=== PATIENT | male | born 2000 | race Caucasian/White ===

== ENCOUNTER 2021-02-25 12:37 | Inpatient (IN) | payer OTHER ==
[~2021-02-25] VITALS: Ht 185.4 cm; Wt 95.5 kg
[2021-02-25] MEDS ORDERED: VALT500T PO (12:45)
[2021-02-25 17:32] LABS: BASO # 0.1 10^3/uL (0.0-0.2); BASO % 0.3 % (0.0-1.0); EOS % 0.1 % (0.0-3.0); HEMATOCRIT 40.1 % (42.0-52.0); HEMOGLOBIN 13.3 g/dl (13.5-17.5); LYMPH # 0.8 10^3/uL (1.5-5.0); LYMPH % 5.1 % (24.0-44.0); MEAN CORPUSCULAR HEMOGLOBIN 31.6 pg (27.0-33.0); MEAN CORPUSCULAR HGB CONC 33.2 g/dl (32.0-36.5); MEAN CORPUSCULAR VOLUME 95.2 fl (80.0-96.0); MONO # 1.3 10^3/uL (0.0-0.8); NEUTROPHILS # 13.9 10^3/uL (1.5-8.5); NEUTROPHILS % 86.1 % (36.0-66.0); PLATELET COUNT, AUTOMATED 299 10^3/uL (150-450); RED BLOOD COUNT 4.21 10^6/uL (4.30-6.10); WHITE BLOOD COUNT 16.2 10^3/uL (4.0-10.0)
--- NOTE | 2021-02-25 17:45 | REP ---
INDICATION: swelling redness, pain COMPARISON: None TECHNIQUE: Five views FINDINGS: The compartments are symmetric and well maintained. There is no acute fracture, dislocation, or subluxation. There is no destructive osseous lesion. There does appear to be soft tissue swelling at the level of an inferior to the patella. IMPRESSION: Soft tissue swelling. No osseous abnormality. <Electronically signed by Chucho Man > 02/25/21 1204
[2021-02-25 18:09] LABS: ALBUMIN 4.4 GM/DL (3.2-5.2); ALT/SGPT 35 U/L (12-78); BLOOD UREA NITROGEN 19 MG/DL (7-18); CALCIUM LEVEL 9.4 MG/DL (8.5-10.1); CARBON DIOXIDE LEVEL 26 MEQ/L (21-32); CHLORIDE LEVEL 104 MEQ/L (98-107); CREATININE FOR GFR 1.12 MG/DL (0.70-1.30); GLUCOSE, FASTING 94 MG/DL (70-100); POTASSIUM SERUM 3.7 MEQ/L (3.5-5.1); SODIUM LEVEL 136 MEQ/L (136-145); TOTAL PROTEIN 7.8 GM/DL (6.4-8.2)
[2021-02-25 18:12] LABS: ERYTHROCYTE SEDIMENTATION RATE 10 mm/hr (0-15)
[2021-02-25] MEDS ORDERED: LIDOCAINE 1% SDV 30ML VIAL SC ONE (19:55)
[2021-02-25] MEDS ORDERED: LIDOCAINE 1% SDV 30ML VIAL SC SCH (19:55)
[2021-02-25] MEDS ORDERED: LIDOCAINE 1% MDV 20ML VIAL As Ordered ONE (19:57)
--- NOTE | 2021-02-25 20:17 | CR.PDOC ---
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 He states that he was doing movements and ran 5 miles yesterday. Developed progressive onset pain and swelling in the knee difficulty weightbearing. States he had a difficult night sleeping with possible fever and chills. Was sent in to emerge for evaluation. Otherwise healthy male. No trauma to the knee. X-rays otherwise negative.]. ALLERGIES: Please see below. HOME MEDICATIONS: Please see below. 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 GENERAL APPEARANCE: [Resting comfortably on stretcher]. HEENT: [Within normal limits]. RESPIRATORY: [Breathing comfortably on room air]. CARDIOVASCULAR: [No chest pain vital signs as below]. ABDOMEN: [Soft nontender]. EXTREMITIES: [Left knee able to actively range of motion 0 to 90 degrees. Mild tightness with deep flexion Erythema anterior surface of the knee. Bogginess subcutaneous over anterior aspect of the knee. Nontender to palpation]. NEUROLOGICAL: [Sensory intact to light touch. Grade 5 power throughout left lower extremity]. PSYCHIATRIC: [Compliant and agreeable]. Patient consents to aspiration subcutaneous fluid. Skin cleaned with Betadine and then with chlorhexidine wipes Using sterile technique aspiration of 2 to 3 cc serosanguineous fluid from the subcutaneous tissue. This was not a knee aspiration. LABORATORY DATA: Please see below. ASSESSMENT/PLAN: Healthy male most likely cellulitis. Full range of motion of the knee so unlikely septic knee. Plan would be to admit for IV antibiotics. Given the unusual nature and no history of trauma. Would MRI left knee to better evaluate subcutaneous structures. Fluid collection noted on MRI. Plan to monitor response to IV with Blood work and monitor symptoms. Vital Signs/I&O Vital Signs Date Time Temp Pulse Resp B/P (MAP) Pulse Ox O2 Delivery O2 Flow Rate FiO2 02/25/21 18:41 100.8 02/25/21 15:57 02/25/21 12:38 92 16 100 Room Air Laboratory Data Labs 24H Laboratory Tests 2 02/25/21 17:08: Immature Granulocyte % (Auto) 0.4, Neutrophils (%) (Auto) 86.1H, Lymphocytes (%) (Auto) 5.1L, Monocytes (%) (Auto) 8.0, Eosinophils (%) (Auto) 0.1, Basophils (%) (Auto) 0.3, Neutrophils # (Auto) 13.9H, Lymphocytes # (Auto) 0.8L, Monocytes # (Auto) 1.3H, Eosinophils # (Auto) 0.0, Basophils # (Auto) 0.1, Nucleated Red Blood Cells % (auto) 0.0, Erythrocyte Sedimentation Rate 10, Anion Gap 6L, Lactic Acid Level 1.1, Uric Acid 3.0L, Calcium Level 9.4, Total Bilirubin 1.0, Aspartate Amino Transf (AST/SGOT) 28, Alanine Aminotransferase (ALT/SGPT) 35, Alkaline Phosphatase 105, C-Reactive Protein, Quantitative 11.80H, Total Protein 7.8, Albumin 4.4, Albumin/Globulin Ratio 1.3 CBC/BMP Laboratory Tests 02/25/21 17:08 Microbiology Microbiology 02/25/21 Blood Culture, Received Pending 02/25/21 Blood Culture, Received Pending Allergies Coded Allergies: No Known Allergies (Unverified , 02/25/21) Home Medications Scheduled PRN Ibuprofen (Ibuprofen) 200 Mg Tablet, 800 MG PO Q8H PRN for MILD PAIN or TEMP > 100.4, (Reported) Valacyclovir HCl (Valacyclovir) 500 Mg Tablet, 500 MG PO BID PRN for FLARE-UPS, (Reported) EVELYN ANSARI MD Feb 25, 2021 20:17
[2021-02-25 21:10] LABS: SOURCE, BODY FLUID LFT KNEE; SYNOVIAL FLUID COLOR RED (COLORLESS)
[2021-02-25] MEDS ORDERED: PROHANCE 279.3MG/ML 15ML VIAL As Ordered ONE (21:15)
[2021-02-25] MEDS ORDERED: PROHANCE 279.3MG/ML 5ML VIAL As Ordered ONE (21:17)
--- NOTE | 2021-02-25 21:56 | REPVR ---
PROCEDURE INFORMATION: Exam: MR Left Lower Extremity Joint Without and With Contrast, Knee Exam date and time: 02/25/2021 8:58 PM Age: 20 years old Clinical indication: Swelling or effusion of joint; Knee; Additional info: Left knee swelling unusual presentation with subcutaneous FL TECHNIQUE: Imaging protocol: MR of the Left lower extremity joint without and with contrast. Exam focused on the knee. Contrast material: PROHANCE; Contrast volume: 19 ml; Contrast route: INTRAVENOUS (IV); COMPARISON: CR Knee, complete LEFT 02/25/2021 4:48 PM FINDINGS: There is a large amount of loculated, complex, peripherally enhancing deep subcutaneous fluid along the anterior aspect of the knee, measuring up to approximately 5.4 x 1.5 x 11.4 cm laterally and 4.8 x 0.9 x 7.3 cm medially. Pronounced associated soft tissue swelling and subcutaneous edema with associated enhancement and overlying skin thickening. Small popliteal cyst. Mildly prominent retrofemoral lymph nodes, likely reactive. The anterior and posterior cruciate ligaments are intact. The medial collateral ligament and lateral collateral complex are normal in appearance. The medial and lateral menisci are normal in morphology and signal intensity. No meniscal tear is identified. The extensor mechanism is intact. There is no evidence of acute fracture or dislocation. Bone marrow signal is normal. Alignment is anatomic. The articular cartilage is intact. There is no significant suprapatellar effusion. IMPRESSION: 1. Large amount of loculated, complex, peripherally enhancing fluid along the anterior aspect of the knee, concerning for abscess. 2. Additional findings, as above. Electronically signed by: Shay Avila On 02/25/2021 21:56:24 PM
[2021-02-25 22:41] LABS: RSV AMPLIFICATION NEGATIVE (NEGATIVE)
[2021-02-25] MEDS ORDERED: IBUP-1720 PO (22:59)
[2021-02-25] MEDS ORDERED: VALA500T5 PO (22:59)
[2021-02-25] MEDS ORDERED: HOME MED LIST COMPLETE! XX SCH (23:00)
--- NOTE | 2021-02-25 23:10 | HPEPDOC ---
[facility] Medical History & Physical Date of Admission Feb 25, 2021 Date of Service: Feb 25, 2021 History and Physical CHIEF COMPLAINT: Left knee pain HISTORY OF PRESENT ILLNESS: 20-year-old healthy male presents with worsening left knee pain over the past 24 hours. Patient last evening noticed his left knee was becoming more swollen and red and this was after he had returned from running 5 miles. He does do some training where he was loaded on his left knee but otherwise he denies any trauma or penetrating wounds or insect bites to the knee. He denies having any pain or swelling in any other joints. He endorses having fevers & chills but no nausea or vomiting. He did note that he had a rash on his abdomen that lasted for several hours and then went away on its own. In the emergency department orthopedic surgery was consulted who saw the patient at bedside and aspirated fluid from his knee which was sent for culture and recommended admission to medical service for IV antibiotics. 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 REVIEW OF SYSTEMS: 10 point review of systems complete all negative otherwise stated in HPI HOME MEDICATIONS: Please see below. PHYSICAL EXAMINATION: Constitutional: Awake and alert, in no apparent distress ENT: Sclera are clear. Mucosa is moist. Respiratory: Lungs CTA bilaterally. Cardiovascular: RRR S1 and S2 are normal, I cannot appreciate a murmur Gastrointestinal: Abdomen is soft, non distended, non tender, BS present. Musculoskeletal: No lower extremity edema. Left knee is erythematous around the patella with some mild swelling. It's not tender to palpation. He is able to bend it to 90. Feels a little tight beyond that. Neurologic: No focal neurological deficit. Mental Status: A&O x3, normal affect skin: He had reported a rash on his abdomen that lasted for a few hours and went away on its own and currently there is no obvious rashes that I can see LABORATORY DATA: See below. IMAGING: See chart MICROBIOLOGY: Please see below. ASSESSMENT/PLAN # Left knee cellulitis/abscess: IV Abx with Unasyn. Fu BCx. Fu aspiration fluid culture and stain. Orthopedics consulted - no need for I&D right now, continue IV abx and watch for response. MRI suggestive of fluid collection could be abscess. He does have leukocytosis and a fever. Pain control. # DVT prophylaxis: Heparin A Yousef Hospitalist Vital Signs Vital Signs Date Time Temp Pulse Resp B/P (MAP) Pulse Ox O2 Delivery O2 Flow Rate FiO2 02/25/21 18:41 100.8 02/25/21 15:57 02/25/21 12:38 92 16 100 Room Air Laboratory Data Labs 24H Laboratory Tests 2 02/25/21 17:08: Immature Granulocyte % (Auto) 0.4, Neutrophils (%) (Auto) 86.1H, Lymphocytes (%) (Auto) 5.1L, Monocytes (%) (Auto) 8.0, Eosinophils (%) (Auto) 0.1, Basophils (%) (Auto) 0.3, Neutrophils # (Auto) 13.9H, Lymphocytes # (Auto) 0.8L, Monocytes # (Auto) 1.3H, Eosinophils # (Auto) 0.0, Basophils # (Auto) 0.1, Nucleated Red Blood Cells % (auto) 0.0, Erythrocyte Sedimentation Rate 10, Anion Gap 6L, Lactic Acid Level 1.1, Uric Acid 3.0L, Calcium Level 9.4, Total Bilirubin 1.0, Aspartate Amino Transf (AST/SGOT) 28, Alanine Aminotransferase (ALT/SGPT) 35, Alkaline Phosphatase 105, C-Reactive Protein, Quantitative 11.80H, Total Protein 7.8, Albumin 4.4, Albumin/Globulin Ratio 1.3 02/25/21 20:39: Body Fluid WBC (Auto) 01156F, Body Fluid RBC (Auto) 30, Body Fluid Mononuclear Cells % Auto 24.2H, Fluid Polymorphonuclear Cell % Auto 75.8H, Synovial Fluid Source LFT KNEE, Synovial Fluid Color RED, Synovial Fluid Appearance TURBID 02/25/21 21:49: Coronavirus (COVID-19)(PCR) NEGATIVE, Influenza Type A (RT-PCR) NEGATIVE, Influenza Type B (RT-PCR) NEGATIVE, Respiratory Syncytial Virus (PCR) NEGATIVE CBC/BMP Laboratory Tests 02/25/21 17:08 Microbiology Microbiology 02/25/21 Gram Stain, Received Pending 02/25/21 Body Fluid Culture, Received Pending 02/25/21 Blood Culture, Received Pending 02/25/21 Blood Culture, Received Pending Home Medications Scheduled PRN Ibuprofen (Ibuprofen) 200 Mg Tablet, 800 MG PO Q8H PRN for MILD PAIN or TEMP > 100.4 Valacyclovir HCl (Valacyclovir) 500 Mg Tablet, 500 MG PO BID PRN for FLARE-UPS Allergies Coded Allergies: No Known Allergies (Unverified , 02/25/21) SHREYAS EDGE MD Feb 25, 2021 23:10
--- OUTSIDE RECORDS SUMMARY | 2021-02-25 23:20 | CCD ---
Author Author [facility] Organization [facility] Address Unknown Phone Unavailable Support Name Relationship Address Phone ARMY Next Of Kin [address] [place] [address] Unavailable KATIA [place] [address] LINA NIELSON Next Of Kin [address] [place] [address] Re-disclosure Warning The records that you are about to access may contain information from federally-assisted alcohol or drug abuse programs. If such information is present, then the following federally mandated warning applies: This information has been disclosed to you from records protected by federal confidentiality rules (42 CFR part 2). The federal rules prohibit you from making any further disclosure of this information unless further disclosure is expressly permitted by the written consent of the person to whom it pertains or as otherwise permitted by 42 CFR part 2. A general authorization for the release of medical or other information is NOT sufficient for this purpose. The Federal rules restrict any use of the information to criminally investigate or prosecute any alcohol or drug abuse patient.The records that you are about to access may contain highly sensitive health information, the redisclosure of which is protected by Article 27-F of the [facility] Public Health law. If you continue you may have access to information: Regarding HIV / AIDS; Provided by facilities licensed or operated by the [facility] Office of Mental Health; or Provided by the [facility] Office for People With Developmental Disabilities. If such information is present, then the following [facility] mandated warning applies: This information has been disclosed to you from confidential records which are protected by state law. State law prohibits you from making any further disclosure of this information without the specific written consent of the person to whom it pertains, or as otherwise permitted by law. Any unauthorized further disclosure in violation of state law may result in a fine or halfway sentence or both. A general authorization for the release of medical or other information is NOT sufficient authorization for further disc losure. Immunizations Vaccine Date Status Description Data Source(s) COVID-19 VACCINE Moderna 09/16/2020 12:00:00 AM EDT completed [employer] Vaccine Series Complete: YESThis Data wa s Submitted to [facility] Via [employer]. COVID-19 VACCINE Moderna 08/19/2020 12:00:00 AM EDT completed [employer] Vaccine Series Complete: NOThis Data was Submitted to [facility] Via [employer]. Medications No Information Insurance Providers Payer name Policy type / Coverage type Policy ID Covered republican ID Covered republican's relationship to clifford Policy Clifford Plan Information [facility] [employer] [id number] Problems, Conditions, and Diagnoses No Information Surgeries/Procedures No Information Results No Information Social History No Information
[2021-02-25] MEDS: ACETAMINOPHEN TAB 650MG DOSE (2X325MG) PO PRN (23:38)
[2021-02-26] VITALS: BP 137/76
[2021-02-26] MEDS: AMPICILLIN SOD/SULBACTAM SOD 3 GM in D5W MINI-BAG PLUS 100 ML IV SCH ×4 (00:14→17:47)
[2021-02-26 06:00] VITALS: BP 128/74
[2021-02-26] MEDS: ACETAMINOPHEN TAB 650MG DOSE (2X325MG) PO PRN (06:29)
[2021-02-26 06:54] LABS: BASO # 0.1 10^3/uL (0.0-0.2); BASO % 0.3 % (0.0-1.0); EOS # 0.1 10^3/uL (0.0-0.5); HEMATOCRIT 40.6 % (42.0-52.0); HEMOGLOBIN 13.1 g/dl (13.5-17.5); LYMPH # 1.1 10^3/uL (1.5-5.0); LYMPH % 7.5 % (24.0-44.0); MEAN CORPUSCULAR HGB CONC 32.3 g/dl (32.0-36.5); MEAN CORPUSCULAR VOLUME 96.2 fl (80.0-96.0); MONO # 1.3 10^3/uL (0.0-0.8); MONO % 9.1 % (2.0-8.0); NEUTROPHILS % 81.6 % (36.0-66.0); PLATELET COUNT, AUTOMATED 291 10^3/uL (150-450); RED BLOOD COUNT 4.22 10^6/uL (4.30-6.10); WHITE BLOOD COUNT 14.7 10^3/uL (4.0-10.0)
[2021-02-26 07:18] LABS: BLOOD UREA NITROGEN 19 MG/DL (7-18); CALCIUM LEVEL 8.8 MG/DL (8.5-10.1); CARBON DIOXIDE LEVEL 28 MEQ/L (21-32); CHLORIDE LEVEL 105 MEQ/L (98-107); CREATININE FOR GFR 1.13 MG/DL (0.70-1.30); ERYTHROCYTE SEDIMENTATION RATE 21 mm/hr (0-15); GLUCOSE, FASTING 97 MG/DL (70-100); POTASSIUM SERUM 4.3 MEQ/L (3.5-5.1); SODIUM LEVEL 138 MEQ/L (136-145)
[2021-02-26 07:21] LABS: ALBUMIN 3.6 GM/DL (3.2-5.2); ALT/SGPT 29 U/L (12-78); BILIRUBIN,TOTAL 0.6 MG/DL (0.2-1.0); BLOOD UREA NITROGEN 19 MG/DL (7-18); CARBON DIOXIDE LEVEL 27 MEQ/L (21-32); CHLORIDE LEVEL 104 MEQ/L (98-107); CREATININE FOR GFR 1.19 MG/DL (0.70-1.30); GLUCOSE, FASTING 99 MG/DL (70-100); MAGNESIUM LEVEL 2.1 MG/DL (1.4-2.0); SODIUM LEVEL 138 MEQ/L (136-145); TOTAL PROTEIN 7.7 GM/DL (6.4-8.2)
[2021-02-26] MEDS: HEPARIN SOD (PORCINE) 5000UNITS/ML 1ML VIAL/SYRINGE SC SCH ×2 (08:49→21:02)
--- NOTE | 2021-02-26 10:44 | IPNPDOC ---
Text Note Date of Service The patient was seen on 02/26/21. 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 He reports feeling "warm" overnight and continues to have knee pain which has lessened since being admitted yesterday evening. He continues to have a good appetite and converses easily with me. He is able to flex his left knee to 90 degrees; his right knee has full range of motion. He is able to ambulate to the restroom without difficulty. Objective: Vital signs: See below General: A male who appears his stated age sitting in bed in no acute distress. HEENT: PERRLA, EOMI, mucous membranes moist and pink, no lymphadenopathy, neck is supple Cardiovascular: regular rate and rhythm, no murmurs, rubs, or gallops noted Respiratory: Clear to auscultation bilaterally, no wheezes, rhonchi, or rales noted Abdomen: soft, nontender to palpation, no organomegaly, positive bowel sounds Extremities: pulses 2+ throughout, capillary refill <2 seconds, left knee appears edematous with erythema of the skin overlying anterior aspect. Left knee can flex to 90 degrees comfortably with tightness to deep flexion. 5/5 strength and full sensation throughout. Mild pain to palpation of left knee joint. Skin: no rashes present, erythema of anterior aspect of left knee, a bandaid is present over anterolateral aspect s/p fluid aspiration. 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 While in the ED a knee MRI exhibited a large amount of loculated, complex, peripherally enhancing fluid along the anterior aspect of the knee, concerning for abscess. He was admitted for IV antibiotics and monitoring for clinical improvement. Plan: Cellulitis of left knee -s/p fluid aspiration of anteriorly located abscess of left knee by Orthopedics -orthopedics was consulted and advised against I&D at this time. -continue IV unasyn -left knee x-ray and MRI: showed soft tissue swelling and large amount of loculated, complex, peripherally enhancing fluid along the anterior aspect of the knee, concerning for abscess. -fluid aspirate WBC 16,772 red turbid, Gram stain: few wbcs no organisms seen. Culture pending -Lyme pending -Uric acid level low -WBC downtrending to 14.7 today -ESR/CRP uptrending -blood cultures pending -continue to monitor for clinical improvement -continue with tylenol for fever DVT prophylaxis: continue heparin CODE STATUS: FULL CODE Disposition: Continue IV unasyn and monitor patient for clinical improvement. He will need a 7-10 day total course of antibiotics. Continue with tylenol for fever. We appreciate orthopedics input on this patient. VS,Mattybone, I+O VS, Mattybone, I+O Laboratory Tests 02/25/21 17:08 02/26/21 06:33 Vital Signs Date Time Temp Pulse Resp B/P (MAP) Pulse Ox O2 Delivery O2 Flow Rate FiO2 02/26/21 06:00 100.5 85 21 128/74 (92) 100 Room Air I&O- Last 24 Hours up to 6 AM 02/26/21 06:00 Intake Total 400 ml Balance 400 ml BENNY MARY DO Feb 26, 2021 10:44
--- NOTE | 2021-02-26 13:57 | IPNPDOC ---
Subjective Date Seen The patient was seen on 02/26/21. Subjective Chief Complaint/HPI Left knee swelling and pain. Admitted for cellulitis. Events since last encounter Patient admitted overnight. He states he feels better. No increase in swelling erythema left knee. He thinks there is some mild improvement. Pain at rest has improved. On examination Good range of motion of the knee 0 to 100 degrees Subcutaneous swelling still visible Erythema no progression Still nontender to palpation Sensory intact to light touch Plan: Continue IV antibiotics going forward Continue to monitor symptoms of blood work Patient may be weightbearing as tolerated Follow-up on cultures. Constitutional: Reports: Chills; Denies: Fever, Malaise, Night Sweats, Weakness, Fatigue, Weight Loss, Leth argy, Other Musculoskeletal: Denies: Neck Pain, Back Pain, Shoulder Pain, Arm Pain, Hand Pain, Leg Pain, Foot Pain, Joint Pain, Muscle Pain, Spasms, Other Symptoms Neurological: Denies: Weakness, Numbness, Incoordination, Change in speech, Confusion, Seizures, Other Symptoms Assessment /Plan Plan/VTE VTE Prophylaxis Ordered?: No VTE Exclusion Mechanical Proph: Low Risk for VTE VTE Exclusion Pharmacological: At Low Risk for VTE VS, I&O, 24H, Fishbone Vital Signs/I&O Vital Signs Date Time Temp Pulse Resp B/P (MAP) Pulse Ox O2 Delivery O2 Flow Rate FiO2 02/26/21 06:00 100.5 85 21 128/74 (92) 100 Room Air I&O- Last 24 Hours up to 6 AM 02/26/21 06:00 Intake Total 400 ml Balance 400 ml Laboratory Data 24H LABS Laboratory Tests 2 02/25/21 17:08: Immature Granulocyte % (Auto) 0.4, Neutrophils (%) (Auto) 86.1H, Lymphocytes (%) (Auto) 5.1L, Monocytes (%) (Auto) 8.0, Eosinophils (%) (Auto) 0.1, Basophils (%) (Auto) 0.3, Neutrophils # (Auto) 13.9H, Lymphocytes # (Auto) 0.8L, Monocytes # (Auto) 1.3H, Eosinophils # (Auto) 0.0, Basophils # (Auto) 0.1, Nucleated Red Blood Cells % (auto) 0.0, Erythrocyte Sedimentation Rate 10, Anion Gap 6L, Lactic Acid Level 1.1, Uric Acid 3.0L, Calcium Level 9.4, Total Bilirubin 1.0, Aspartate Amino Transf (AST/SGOT) 28, Alanine Aminotransferase (ALT/SGPT) 35, Alkaline Phosphatase 105, C-Reactive Protein, Quantitative 11.80H, Total Protein 7.8, Albumin 4.4, Albumin/Globulin Ratio 1.3 02/25/21 20:39: Body Fluid WBC (Auto) 51285B, Body Fluid RBC (Auto) 30, Body Fluid Mononuclear Cells % Auto 24.2H, Fluid Polymorphonuclear Cell % Auto 75.8H, Synovial Fluid Source LFT KNEE, Synovial Fluid Color RED, Synovial Fluid Appearance TURBID 02/25/21 21:49: Coronavirus (COVID-19)(PCR) NEGATIVE, Influenza Type A (RT-PCR) NEGATIVE, In fluenza Type B (RT-PCR) NEGATIVE, Respiratory Syncytial Virus (PCR) NEGATIVE 02/26/21 06:33: Immature Granulocyte % (Auto) 0.5, Neutrophils (%) (Auto) 81.6H, Lymphocytes (%) (Auto) 7.5L, Monocytes (%) (Auto) 9.1H, Eosinophils (%) (Auto) 1.0, Basophils (%) (Auto) 0.3, Neutrophils # (Auto) 12.0H, Lymphocytes # (Auto) 1.1L, Monocytes # (Auto) 1.3H, Eosinophils # (Auto) 0.1, Basophils # (Auto) 0.1, Nucleated Red Blood Cells % (auto) 0.0, Erythrocyte Sedimentation Rate 21H, Anion Gap 7L, Calcium Level 9.0, Total Bilirubin 0.6, Aspartate Amino Transf (AST/SGOT) 18, Alanine Aminotransferase (ALT/SGPT) 29, Alkaline Phosphatase 101, C-Reactive Protein, Quantitative 14.70H, Total Protein 7.7, Albumin 3.6, Albumin/Globulin Ratio 0.9, Magnesium Level 2.1H CBC/BMP Laboratory Tests 02/25/21 17:08 02/26/21 06:33 Microbiology Microbiology 02/25/21 Gram Stain - Final, Resulted 02/25/21 Body Fluid Culture, Resulted Pending 02/25/21 Blood Culture, Received Pending 02/25/21 Blood Culture, Received Pending EVELYN ANSARI MD Feb 26, 2021 13:57
[2021-02-26 14:00] VITALS: BP 121/73
[2021-02-26 18:42] LABS: BASO % 0.3 % (0.0-1.0); EOS # 0.2 10^3/uL (0.0-0.5); EOS % 1.3 % (0.0-3.0); HEMATOCRIT 40.6 % (42.0-52.0); HEMOGLOBIN 13.2 g/dl (13.5-17.5); LYMPH # 1.1 10^3/uL (1.5-5.0); LYMPH % 8.8 % (24.0-44.0); MEAN CORPUSCULAR HEMOGLOBIN 31.9 pg (27.0-33.0); MEAN CORPUSCULAR HGB CONC 32.5 g/dl (32.0-36.5); MEAN CORPUSCULAR VOLUME 98.1 fl (80.0-96.0); NEUTROPHILS # 10.3 10^3/uL (1.5-8.5); NEUTROPHILS % 81.4 % (36.0-66.0); PLATELET COUNT, AUTOMATED 291 10^3/uL (150-450); RED BLOOD COUNT 4.14 10^6/uL (4.30-6.10); WHITE BLOOD COUNT 12.7 10^3/uL (4.0-10.0)
[2021-02-26 19:09] LABS: BLOOD UREA NITROGEN 17 MG/DL (7-18); CALCIUM LEVEL 9.1 MG/DL (8.5-10.1); CARBON DIOXIDE LEVEL 29 MEQ/L (21-32); CHLORIDE LEVEL 103 MEQ/L (98-107); CREATININE FOR GFR 1.18 MG/DL (0.70-1.30); GLUCOSE, FASTING 127 MG/DL (70-100); POTASSIUM SERUM 3.9 MEQ/L (3.5-5.1); SODIUM LEVEL 140 MEQ/L (136-145)
[2021-02-26 22:00] VITALS: BP 126/73
[2021-02-27] MEDS: AMPICILLIN SOD/SULBACTAM SOD 3 GM in D5W MINI-BAG PLUS 100 ML IV SCH ×3 (00:32→12:22)
[2021-02-27 06:00] VITALS: BP 123/68
[2021-02-27] MEDS: HEPARIN SOD (PORCINE) 5000UNITS/ML 1ML VIAL/SYRINGE SC SCH (07:54)
[2021-02-27] MEDS ORDERED: AUGM875T28 PO (09:48)
--- NOTE | 2021-02-27 09:54 | DS.PDOC ---
Discharge Summary General Date of Admission Feb 25, 2021 at 23:00 Date of Discharge 02/27/21 Attending Physician: NIDIA SQUIRES MD Discharge Summary PROCEDURES PERFORMED DURING STAY: Fluid aspiration of left knee ADMITTING DIAGNOSES: No past medical history DISCHARGE DIAGNOSES: Cellulitis of left knee COMPLICATIONS/CHIEF COMPLAINT: Abscess Of Left Knee, Cellulitis Of Left Knee. HISTORY OF PRESENT ILLNESS: Mr. Moe is a 20 year old male who presented to the emergency department for worsening left knee pain over the last 24 hours. He is in [employer] training and has been training vigorously for the last 4 months. He ran 5 miles two days ago and noticed that his knee was red and swollen that evening. His knee was painful the next morning and was noticeably more swollen and tender. He denies trauma, penetrating wounds, or insect bites to the knee. He denies fevers, chills, or night sweats. In the emergency department orthopedic surgery was consulted and aspirated a collection of fluid from his left knee which was sent for culture. HOSPITAL COURSE: Cellulitis of left knee -Orthopedic surgery was consulted and aspirated fluid from anteriorly located abscess of left knee. The fluid was sent to culture and grew staphyloccoccus aureus -Patient was started on IV unasyn and monitored for clinical improvement -left knee x-ray and MRI showed soft tissue swelling and large amount of loculated, complex, peripherally enhancing fluid along the anterior aspect of th e knee, concerning for abscess. -Patient given tylenol for low grade fever as needed -Fluid aspirate WBC 16,772 red turbid, Gram stain: few wbcs no organisms seen. -Patient's WBC downtrended during hospitalization, blood cultures were negative. -Patient was monitored for clinical improvement. -The patient is able to bear weight on left leg with little to no discomfort. -Clinically his knee appears less edematous and erythematous -Patient was discharged on 5 additional days of Augmentin 875 and advised to follow up with Dr. Knox for clearance to return to work before 03/09/21. DISCHARGE MEDICATIONS: Please see below. ALLERGIES: Please see below. PHYSICAL EXAMINATION ON DISCHARGE: VITAL SIGNS: Please see below. General: A male sitting in bed in no acute distress, he is pleasant to converse with. HEENT: PERRLA, EOMI, mucous membranes moist and pink, no lymphadenopathy, neck is supple Cardiovascular: regular rate and rhythm, no murmurs, rubs, or gallops noted Respiratory: Clear to auscultation bilaterally, no wheezes, rhonchi, or rales noted Abdomen: soft, nontender to palpation, no organomegaly, positive bowel sounds Extremities: left knee appears mildly edematous with slight erythema of the skin overlying anterior aspect. Left knee can flex past 90 degrees with only mild discomfort. 5/5 strength and full sensation throughout. No pain to palpation of knee joint. Skin: no rashes present, skin overlying knee joint appears less erythematous. Psychiatric: alert and oriented x 4 LABORATORY DATA: Please see below. IMAGING: Knee X-ray: Soft tissue swelling. No osseous abnormality. Knee MRI: Large amount of loculated, complex, peripherally enhancing fluid along the anterior aspect of the knee, concerning for abscess. PROGNOSIS: Good ACTIVITY: Weight bearing as tolerated DIET: Regular DISCHARGE PLAN: Discharge to home DISPOSITION: Patient is medically cleared to return home DISCHARGE INSTRUCTIONS: -Follow up with orthopedic surgeon (Dr. Knox) in the next 7 days to be evaluated before returning to work. -If cleared by orthopedic surgery, return to work on 03/09/21 -Do not return to work or participate in PT until 03/09/21 -Take full 5 day course of antibiotics -Take ibuprofen as needed for pain. ITEMS TO FOLLOWUP ON ON OUTPATIENT: -Orthopedic surgery follow appointment DISCHARGE CONDITION: Stable TIME SPENT ON DISCHARGE: 25 minutes. Vital Signs/I&Os Vital Signs Date Time Temp Pulse Resp B/P (MAP) Pulse Ox O2 Delivery O2 Flow Rate FiO2 02/27/21 06:00 99.0 83 19 123/68 (86) 100 Room Air I&O- Last 24 Hours up to 6 AM 02/27/21 06:00 Intake Total 1110 ml Output Total 0 ml Balance 1110 ml Laboratory Data Labs 24H Laboratory Tests 2 02/26/21 18:22: Immature Granulocyte % (Auto) 0.2, Neutrophils (%) (Auto) 81.4H, Lymphocytes (%) (Auto) 8.8L, Monocytes (%) (Auto) 8.0, Eosinophils (%) (Auto) 1.3, Basophils (%) (Auto) 0.3, Neutrophils # (Auto) 10.3H, Lymphocytes # (Auto) 1.1L, Monocytes # (Auto) 1.0H, Eosinophils # (Auto) 0.2, Basophils # (Auto) 0.0, Nucleated Red Blood Cells % (auto) 0.0, Anion Gap 8, Calcium Level 9.1, C-Reactive Protein, Quantitative 15.80H CBC/BMP Laboratory Tests 02/26/21 18:22 Microbiology Microbiology 02/25/21 Gram Stain - Final, Resulted 02/25/21 Body Fluid Culture - Preliminary, Resulted Staphylococcus Aureus 02/25/21 Blood Culture - Preliminary, Resulted No growth after 24 hours . All specim... 02/25/21 Blood Culture - Preliminary, Resulted No growth after 24 hours . All specim... Discharge Medications Scheduled Amoxicillin/Potassium Clav (Augmentin 875-125 Tablet) 1 Each Tablet, 875 MG PO BID Scheduled PRN Ibuprofen (Ibuprofen) 200 Mg Tablet, 800 MG PO Q8H PRN for MILD PAIN or TEMP > 100.4, (Reported) Valacyclovir HCl (Valacyclovir) 500 Mg Tablet, 500 MG PO BID PRN for FLARE-UPS, (Reported) Allergies Coded Allergies: No Known Allergies (Unverified , 02/25/21) BENNY MARY DO Feb 27, 2021 09:54
[2021-02-27] MEDS: ACETAMINOPHEN TAB 650MG DOSE (2X325MG) PO PRN (12:22)
[2021-02-27 13:06] LABS: BASO % 0.4 % (0.0-1.0); EOS # 0.2 10^3/uL (0.0-0.5); EOS % 2.3 % (0.0-3.0); HEMATOCRIT 42.7 % (42.0-52.0); HEMOGLOBIN 13.7 g/dl (13.5-17.5); LYMPH # 1.3 10^3/uL (1.5-5.0); LYMPH % 12.6 % (24.0-44.0); MEAN CORPUSCULAR HEMOGLOBIN 31.3 pg (27.0-33.0); MEAN CORPUSCULAR HGB CONC 32.1 g/dl (32.0-36.5); MEAN CORPUSCULAR VOLUME 97.5 fl (80.0-96.0); MONO # 1.1 10^3/uL (0.0-0.8); MONO % 11.1 % (2.0-8.0); NEUTROPHILS # 7.5 10^3/uL (1.5-8.5); PLATELET COUNT, AUTOMATED 317 10^3/uL (150-450); RED BLOOD COUNT 4.38 10^6/uL (4.30-6.10); WHITE BLOOD COUNT 10.3 10^3/uL (4.0-10.0)
[2021-02-27 13:25] LABS: BLOOD UREA NITROGEN 16 MG/DL (7-18); CALCIUM LEVEL 9.4 MG/DL (8.5-10.1); CARBON DIOXIDE LEVEL 32 MEQ/L (21-32); CHLORIDE LEVEL 105 MEQ/L (98-107); CREATININE FOR GFR 0.96 MG/DL (0.70-1.30); GLUCOSE, FASTING 87 MG/DL (70-100); POTASSIUM SERUM 4.3 MEQ/L (3.5-5.1); SODIUM LEVEL 140 MEQ/L (136-145)
[2021-02-27 16:09] LABS: Lyme Disease IgG/IgM Antibodie <0.91 ISR (0.00-0.90); Lyme Disease IgM Ab Quantitati <0.80 index (0.00-0.79)
== END 2021-02-27 14:20 | disposition home or self-care (01) | DRG 603 ==
LOC: M ED 12:37 → M ED INP 23:00 → M MS5PR 23:54
PROVIDERS: ADMIT Family Medicine; ATTEND Internal Medicine
PROC: 0J9P3ZX Drainage of Left Lower Leg Subcutaneous Tissue and Fascia, Percutaneous Approach, Diagnostic (ICD-10-PCS; principal; 2021-02-25)
DX: L03.116 Cellulitis of left lower limb (principal); B95.61 Methicillin susceptible Staphylococcus aureus infection as the cause of diseases classified elsewhere; Z20.822 Contact with and (suspected) exposure to COVID-19

== ENCOUNTER → 2021-03-13 | Outpatient (REF) | payer OTHER ==
[~2021-03-13] MED LIST: AUGM875T28 PO; IBUP-1720 PO; VALA500T5 PO; VALT500T PO
[2021-03-13 10:46] LABS: CRYSTALS, BODY FLUID NONE SEEN (NONE SEEN); SOURCE, BODY FLUID CRYSTALS LFT KNEE
[2021-03-13 11:20] LABS: APPEARANCE, BODY FLUID HAZY
== END ==
LOC: M LAB REF 10:13
PROVIDERS: ATTEND Orthopaedic Surgery
DX: T79.2XXA Traumatic secondary and recurrent hemorrhage and seroma, initial encounter (principal)

== ENCOUNTER 2022-08-12 13:48 | Emergency (ER) | payer OTHER ==
[~2022-08-12] VITALS: Ht 188 cm; Wt 96.2 kg
[2022-08-12 15:22] LABS: BASO # 0.1 10^3/uL (0.0-0.2); BASO % 0.8 % (0.0-1.0); EOS # 0.2 10^3/uL (0.0-0.5); EOS % 2.6 % (0.0-3.0); HEMATOCRIT 42.9 % (42.0-52.0); HEMOGLOBIN 14.2 g/dl (13.5-17.5); LYMPH # 1.9 10^3/uL (1.5-5.0); LYMPH % 24.4 % (24.0-44.0); MEAN CORPUSCULAR HGB CONC 33.1 g/dl (32.0-36.5); MEAN CORPUSCULAR VOLUME 93.7 fl (80.0-96.0); MONO # 0.6 10^3/uL (0.0-0.8); MONO % 7.1 % (2.0-8.0); NEUTROPHILS % 64.6 % (36.0-66.0); PLATELET COUNT, AUTOMATED 327 10^3/uL (150-450); RED BLOOD COUNT 4.58 10^6/uL (4.30-6.10); WHITE BLOOD COUNT 7.8 10^3/uL (4.0-10.0)
[2022-08-12 15:48] LABS: LIPASE 29 U/L (12-53)
[2022-08-12 15:50] LABS: ALKALINE PHOSPHATASE 97 U/L (46-116); ALT/SGPT 18 U/L (7.0-40); AST/SGOT 18 U/L (<34); BILIRUBIN,DIRECT 0.1 MG/DL (<0.4); BILIRUBIN,TOTAL 0.3 MG/DL (0.3-1.2)
[2022-08-12 16:00] LABS: C REACTIVE PROTEIN QUANTITATIV < 0.40 MG/DL (<1.0)
[2022-08-12 16:14] LABS: ERYTHROCYTE SEDIMENTATION RATE 4 mm/hr (0-15)
[2022-08-12] MEDS: GASTROGRAFIN SOLUTION 30ML PO SCH ×2 (16:14→16:42)
[2022-08-12] MEDS ORDERED: ISOVUE-370 76% 100ML VIAL As Ordered ONE (16:30)
[2022-08-12 19:34] VITALS: BP 139/80
== END 2022-08-12 19:48 | disposition home or self-care (01) ==
LOC: M ED 13:48
DX: R10.9 Unspecified abdominal pain (principal); K62.5 Hemorrhage of anus and rectum; F17.200 Nicotine dependence, unspecified, uncomplicated; Z79.2 Long term (current) use of antibiotics; Z79.899 Other long term (current) drug therapy
CPT/HCPCS: 36415; 74177; 80047; 80076; 83605; 83690; 85025; 85652; 86140; 99284; Q9963; Q9967

== ENCOUNTER 2022-12-13 10:40 | Day surgery (SDC) | payer OTHER ==
[~2022-12-13] VITALS: Ht 188 cm; Wt 93.3 kg
[~2022-12-13 10:40] MED LIST changes: +NS 1,000 ML IV ONE
[2022-12-13] MEDS ORDERED: GLYCOPYRROLATE INJ 0.2 MG/ML 2 ML VIAL As Ordered ONE (12:15)
[2022-12-13] MEDS ORDERED: propofoL 200 MG/20 ML VIAL As Ordered ONE ×3 (12:15→12:21)
[2022-12-13] MEDS ORDERED: LIDOCAINE 2% 100MG/5ML SDV (FOR ANES.) As Ordered ONE (12:15)
[2022-12-13 12:51] VITALS: TEMP 98
[2022-12-13 13:13] VITALS: BP 126/60; O2SAT 98
== END 2022-12-13 13:22 | disposition home or self-care (01) ==
LOC: M OPP 10:40
PROVIDERS: ATTEND Internal Medicine Gastroenterology
DX: K63.5 Polyp of colon (principal); K92.1 Melena; K52.9 Noninfective gastroenteritis and colitis, unspecified; K64.4 Residual hemorrhoidal skin tags; K64.8 Other hemorrhoids; K44.9 Diaphragmatic hernia without obstruction or gangrene; K20.90 Esophagitis, unspecified without bleeding; K29.70 Gastritis, unspecified, without bleeding; F17.220 Nicotine dependence, chewing tobacco, uncomplicated; Z79.899 Other long term (current) drug therapy